=== PATIENT | male | born 1945 | race Caucasian/White ===

== ENCOUNTER 2022-08-10 14:23 | Emergency (ER) | payer BC, OTHER ==
[~2022-08-10] VITALS: Ht 172.7 cm; Wt 66.2 kg
[~2022-08-10 14:23] MED LIST: NO MEDS
--- NOTE | 2022-08-10 14:23 | NUR ---
DANAE RA 80 FROM HOME, HAD 1 WHOLE BOTTLE OF VODKA, NEIGHBORS CALLED EMS BECAUSE THEY HAVENT SEEN HIM FOR A WHILE
[2022-08-10 17:59] VITALS: BP 150/86
--- NOTE | 2022-08-10 17:59 | NUR ---
Patient discharged to home in stable condition. Written and verbal after care instructions given. Patient verbalizes understanding of instruction.
== END 2022-08-10 17:59 | disposition home or self-care (01) ==
LOC: ER 14:43
DX: F10.129 Alcohol abuse with intoxication, unspecified (principal); Y90.9 Presence of alcohol in blood, level not specified
CPT/HCPCS: 82962-TC

== ENCOUNTER 2024-01-21 15:09 | Emergency (ER) | payer MEDICARE, MEDICAID ==
[~2024-01-21] VITALS: Ht 167.6 cm; Wt 68.0 kg
[2024-01-21 16:21] LABS: BASOPHILS % (AUTO) 0.6 % (0.0-2.0); EOSINOPHILS # (AUTO) 0.3 K/uL (0.0-0.7); EOSINOPHILS % (AUTO) 4.8 % (0.0-6.0); HEMATOCRIT 45 % (39-51); HEMOGLOBIN 15.3 g/dL (13.5-17.5); LYMPHOCYTES # (AUTO) 0.5 K/uL (0.8-4.8); LYMPHOCYTES % (AUTO) 7.4 % (20.0-44.0); MEAN CORPUSCULAR HEMOGLOBIN 30 PG (26.0-33.0); MEAN CORPUSCULAR HGB CONC 34 g/dl (31.0-36.0); MEAN CORPUSCULAR VOLUME 90 fL (80-96); MONOCYTES # (AUTO) 0.8 K/uL (0.1-1.30); NEUTROPHILS # (AUTO) 4.5 K/uL (1.8-8.9); NEUTROPHILS % (AUTO) 74.2 % (43.0-81.0); PLATELET COUNT (AUTO) 166 K/uL (150-450); RED BLOOD CELL COUNT(AUTO) 5.04 MIL/uL (4.5-6.0); RED CELL DISTRIBUTION WIDTH 13.7 % (11.5-15.0); WHITE BLOOD COUNT (AUTO) 6.1 K/uL (4.3-11.0)
[2024-01-21 16:28] LABS: CARBON DIOXIDE 30 mmol/L (21-32); CHLORIDE 104 mmol/L (98-107); CREATININE 1.1 mg/dL (0.6-1.3); GLUCOSE 98 mg/dL (74-106); POTASSIUM 3.7 mmol/L (3.5-5.1); SODIUM SERUM 140 mmol/L (136-145); UREA NITROGEN, BLOOD 13 mg/dL (7-18)
[2024-01-21] MEDS: predniSONE 20 MG TABLET PO ONE (16:30)
[2024-01-21] MEDS ORDERED: predniSONE 20 MG TABLET ONE (16:33)
[2024-01-21 16:40] LABS: ALANINE AMINOTRANSFERASE 20 U/L (12-78); ALBUMIN 3.7 g/dL (3.4-5.0); ALKALINE PHOSPHATASE 97 U/L (46-116); ASPARTATE AMINOTRANSFERASE 18 U/L (15-37); BILIRUBIN,DIRECT 0.1 mg/dL (0.0-0.2); BILIRUBIN,TOTAL 0.7 mg/dL (0.2-1.0); NT-PRO BNP 90 pg/mL (0-125); TOTAL PROTEIN, SERUM 7.9 g/dL (6.4-8.2)
[2024-01-21] MEDS ORDERED: ALBUTEROL FS 2.5 MG/3 ML VIAL.NEB ONE (16:42)
[2024-01-21] MEDS ORDERED: IPRATROPIUM NEB FS 0.5 MG/2.5 ML AMPUL.NEB ONE (16:42)
[2024-01-21] MEDS: ALBUTEROL FS 2.5 MG/3 ML VIAL.NEB CONTNEB ONE (16:47)
[2024-01-21] MEDS: IPRATROPIUM NEB FS 0.5 MG/2.5 ML AMPUL.NEB NEB ONE (16:47)
[2024-01-21 16:48] VITALS: O2SAT 96
[2024-01-21 17:24] VITALS: O2SAT 98
[2024-01-21] MEDS: AZITHROMYCIN 250 MG TABLET PO ONE (17:30)
[2024-01-21] MEDS ORDERED: ALBU18HF2 INH (17:46)
[2024-01-21] MEDS ORDERED: AZIT250T13 PO (17:46)
[2024-01-21] MEDS ORDERED: PRED50TA PO (17:46)
[2024-01-21] MEDS ORDERED: AZITHROMYCIN 250 MG TABLET ONE (17:50)
[2024-01-21 18:07] VITALS: BP 128/78; TEMP 98.3; O2SAT 98
== END 2024-01-21 18:00 | disposition home or self-care (01) ==
LOC: ER 15:40
DX: R05.9 Cough, unspecified (principal); R06.2 Wheezing; R06.02 Shortness of breath; Z60.2 Problems related to living alone; Z20.822 Contact with and (suspected) exposure to COVID-19
CPT/HCPCS: 99285; 71045; 87426; 93005; 85025; 80048; 80076; 36415; 84484; 83880; 94640; J7512

== ENCOUNTER 2024-11-22 14:29 | Emergency (ER) | payer OTHER ==
[~2024-11-22] VITALS: Ht 175.3 cm; Wt 69.4 kg
[~2024-11-22 14:29] MED LIST changes: +ALBU18HF2 INH; +AZIT250T13 PO; +PRED50TA PO
[2024-11-22 14:45] VITALS: TEMP 98.3
[2024-11-22 15:28] LABS: PLATELET COUNT (AUTO) 179 K/uL (150-450); RED BLOOD CELL COUNT(AUTO) 4.41 MIL/uL (4.5-6.0); RED CELL DISTRIBUTION WIDTH 13.5 % (11.5-15.0); WHITE BLOOD COUNT (AUTO) 5.4 K/uL (4.3-11.0)
[2024-11-22 15:34] LABS: INR 1.03 (0.91-1.10)
[2024-11-22 15:37] LABS: SERUM AMMONIA 4 umol/L (11-32)
[2024-11-22 15:42] LABS: ALCOHOL, BLOOD < 3 mg/dL (0-10); ASPARTATE AMINOTRANSFERASE 20 U/L (15-37); CALCIUM, SERUM 11.6 mg/dL (8.5-10.1); CREATININE 1.0 mg/dL (0.6-1.3); SODIUM SERUM 139 mmol/L (136-145); TOTAL PROTEIN, SERUM 7.2 g/dL (6.4-8.2); UREA NITROGEN, BLOOD 22 mg/dL (7-18)
[2024-11-22 16:10] LABS: APPEARANCE,URINE CLOUDY (CLEAR); BLOOD, URINE NEGATIVE Ery/uL (NEGATIVE); LEUKOCYTE ESTERASE ,URINE NEGATIVE (NEGATIVE); NITRITE, URINE NEGATIVE (NEGATIVE); UGLUCOSE NEGATIVE (NEGATIVE)
[2024-11-22 16:26] LABS: ADD URINE CULTURE YES; AMPHETAMINE, URINE NEGATIVE (NEGATIVE); BARBITURATE, URINE NEGATIVE (NEGATIVE); BENZODIAZEPINE, URINE NEGATIVE (NEGATIVE); CANNABINOID, URINE NEGATIVE (NEGATIVE); COCCAINE, URINE NEGATIVE (NEGATIVE); OPIATE, URINE NEGATIVE (NEGATIVE)
[2024-11-22 16:27] LABS: YEAST,URINE Many /HPF (None Seen)
[2024-11-22] MEDS ORDERED: ONDANSETRON 4 MG TAB.RAPDIS ONE (17:46)
[2024-11-22] MEDS ORDERED: FAMOTIDINE (20 MG) 20 MG TABLET ONE (17:46)
[2024-11-22] MEDS: FAMOTIDINE (20 MG) 20 MG TABLET PO ONE (17:48)
[2024-11-22] MEDS: ONDANSETRON 4 MG TAB.RAPDIS SL ONE (17:48)
[2024-11-22 18:10] VITALS: BP 140/78; O2SAT 96
== END 2024-11-22 18:11 | disposition home or self-care (01) ==
LOC: ER 14:33
DX: R45.6 Violent behavior (principal); R41.82 Altered mental status, unspecified; Z79.52 Long term (current) use of systemic steroids; Z79.899 Other long term (current) drug therapy; Z60.2 Problems related to living alone; Z20.822 Contact with and (suspected) exposure to COVID-19; Z86.2 Personal history of diseases of the blood and blood-forming organs and certain disorders involving the immune mechanism
CPT/HCPCS: 99285; 93005; 71045; 70450; 82140; 85025; 80048; 80076; 81001; 36415; 84443; 84484; 85730; 82962; 80320; 80307; Q0162; 87086-TC; G0480